=== PATIENT | female | born 1995 | race Hispanic/Latino ===

== ENCOUNTER 2024-12-21 09:10 | Emergency (ER) | payer SELFPAY ==
[~2024-12-21] VITALS: Ht 149.9 cm; Wt 70.8 kg
[~2024-12-21 09:10] MED LIST: PREN-154 PO
--- NOTE | 2024-12-21 10:00 | ERN ---
ED Note History of Present Illness Stated Complaint: FLU LIKE SYMPTOMS Chief Complaint: Flu Symptoms Time Seen by MD: 09:14 Dictation: 29-year-old female presents to the ED for evaluation of flu-like symptoms onset two days ago. Patient reports fever, chills, cough, chest pain and back pain, but denies any other associated symptoms at this time. Patient mentioned she was diagnosed with a UTI and prescribed Macrobid at the urgent care on Friday. Patient denies any sick contacts at home. Allergies: Coded Allergies: No Known Allergies (Unverified Allergy, Unknown, 02/25/24) Home Meds Active Scripts Ondansetron (Ondansetron Odt) 4 Mg Tab.rapdis, 1 TAB PO Q6HPRN PRN for nausea/vomiting for 4 Days, #16 TAB 0 Refills Prov:SONIA VALDEZ MD 12/21/24 Oseltamivir Phosphate (Tamiflu) 75 Mg Cap, 75 MG PO BID for 5 Days, #10 CAP Prov:SONIA VALDEZ MD 12/21/24 Reported Medications Vits #93/Iron Fum/FA ( Formula Tablet) 9 Mg Iron-267 Mcg Tablet, 1 EACH PO DAILYBKFST, TAB 02/26/24 Past Medical History Past Medical History: No Pertinent History Surgical History: None LMP: Nov 27, 2024 : 1 Para: 1 Aborts: 0 Review of System Dictation Constitutional: Positive for fever, chills Eyes: Negative for injury, pain,redness, and discharge ENT: Negative for injury,pain or swelling Cardiovascular: Negative for chest pain, palpitations, and edema Respiratory: Positive for cough Negative for shortness of breath, and wheezing, Abdomen/GI: Negative for abdominal pain, nausea, vomiting, diarrhea, and constipation Back: Positive for back pain : Negative for injury, bleeding and discharge MS/Extremity: Negative for injury and deformity Skin: Negative for rash, and discoloration Neuro: Negative for headache, weakness, numbness, tingling, and seizure Psych: Negative for suicide ideation, homicidal ideation, and hallucinations Initial Vital Sign VS Vital Signs Date Time Temp Pulse Resp B/P (MAP) Pulse Ox O2 Delivery O2 Flow Rate FiO2 12/21/24 09:10 100.0 115 20 105/76 98 Room Air 0 12/21/24 11:47 21 Physical Exam Dictation General: awake, alert, NAD Head/Face: Normocephalic, atraumatic Eyes: PERRL, EOMI, vision at baseline ENT: oral cavity clear, TMs clear, nasal congestion Neck: Trachea midline, supple, no nuchal rigidity Cardiovascular: RRR, normal S1/S2, No MRGs, no JVD Respiratory: CTAB, no respiratory distress, No rales or wheezes Abdomen: Soft, non-tender, non-distended, normal bowel sounds, no guarding or rebound. Skin: Warm, dry, normal turgor, no rash MS/Extremity: Pulses equal, no cyanosis, neurovascular intact, FROM Neuro: COAx4, GCS 15, strength 5/5, CN 2-12 intact, normal cerebellar exam, normal gait, Psych: Normal behavior, mood, and affect normal Results (Laboratory/Radiology) Laboratory/Radiology Laboratory Tests Test 12/21/24 09:13 12/21/24 11:51 Influenza Type A Antigen Positive For Type A Influenza Type B Antigen Negative For Type B SARS-CoV-2 Antigen (Rapid) PRESUMPTIVE NEGATIVE Group A Streptococcus Rapid negative (NEGATIVE) Urine Color YELLOW (YELLOW) Urine Appearance CLOUDY (CLEAR) H Urine pH 5.5 (5.0-8.0) Urine Specific [place] 1.015 (1.001-1.031) Urine Protein NEGATIVE mg/dL (NEGATIVE) Urine Glucose (UA) NEGATIVE mg/dL (NEGATIVE) Urine Ketones 20 mg/dL (NEGATIVE) H Urine Occult Blood NEGATIVE (NEGATIVE) Urine Nitrate NEGATIVE (NEGATIVE) Urine Bilirubin NEGATIVE mg/dL (NEGATIVE) Urine Urobilinogen 0.2 mg/dL (0.2-1.0) Urine Leukocyte Esterase 25 Gustavo/uL (NEGATIVE) H Urine RBC 2-5 /HPF (0-1) H Urine WBC 2-5 /HPF (0-1) H Urine Squamous Epithelial Cells MOD /HPF (0-2) Urine Bacteria RARE /HPF (None Seen) Labs Reviewed?: Yes ED Course ED Course Orders Procedure Category Date Status Time Influenza Type A & B, LAB 12/21/24 Complete Rapid 09:10 Covid19 (Sars Antigen LAB 12/21/24 Complete Rapid) 09:10 Rapid (Group A Strep) LAB 12/21/24 Complete 09:10 Chest 2vws RAD 12/21/24 Resulted 09:10 Urinalysis Profile LAB 12/21/24 Complete 09:59 Dexamethasone 4mg/Ml PHA 12/21/24 Complete 1ml Vial (Dexametha 10:00 Current Medications Medications (Trade) Dose Ordered Sig/Bob Route PRN Reason Start Time Stop Time Status Last Admin Dose Admin Dexamethasone Sodium Phosphate (dexaMETHasone 4MG/ML 1ML VIAL) 10 mg ONCE ONCE IM 12/21/24 10:00 12/21/24 10:03 DC 12/21/24 11:39 Vital Signs Date Time Temp Pulse Resp B/P (MAP) Pulse Ox O2 Delivery O2 Flow Rate FiO2 12/21/24 11:47 98.8 88 20 131/64 100 Room Air* 0 21 12/21/24 09:10 100.0 115 20 105/76 98 Room Air 0 Medical Decision Making MDM MDM: Differential diagnosis: Viral syndrome, influenza, URI Risk of complication and/or morbidity or mortality of patient management: None Medications-Per medication reconciliation Need for hospitalization: Patient does not meet criteria for hospitalization. Need for emergency major/minor surgery: No There are no social concerns with this patient. Prescription drug management Prescriptions will include symptomatic care I independently interpreted the test that were performed, results were reviewed by me and considered findings on radiology if ordered. DX & DISP Disposition: Discharge Departure Impression: Primary Impression: Influenza A Additional Impression: Acute URI Condition: Stable Scripts Ondansetron (Ondansetron Odt) 4 Mg Tab.rapdis 1 TAB PO Q6HPRN PRN for nausea/vomiting for 4 Days, #16 TAB 0 Refills Prov: SONIA VALDEZ MD 12/21/24 Oseltamivir Phosphate (Tamiflu) 75 Mg Cap 75 MG PO BID for 5 Days, #10 CAP Prov: SONIA VALDEZ MD 12/21/24 Referrals: SELF,REFERRAL (PCP) SONIA VALDEZ MD Dec 21, 2024 10:00
--- NOTE | 2024-12-21 10:14 | HMCIMG ---
CHEST 2VWS REASON: SOB COMPARISON: None FINDINGS: Two views of the chest were obtained. Lungs are clear. Heart size is normal. There is no pulmonary vascular congestion. Mediastinum and bony thorax appear unremarkable. IMPRESSION: Normal two view chest x-ray.
[2024-12-21 11:10] LABS: RAPID GROUP A STREP negative (NEGATIVE)
[2024-12-21 11:22] LABS: COVID19 (SARS ANTIGEN RAPID) PRESUMPTIVE NEGATIVE (NEGATIVE); INFLUENZA TYPE B Negative For Type B (NEGATIVE)
[2024-12-21 11:25] LABS: INFLUENZA TYPE A Positive For Type A (NEGATIVE)
[2024-12-21] MEDS ORDERED: ONDA-243 PO (11:36)
[2024-12-21] MEDS ORDERED: OSEL75 PO (11:36)
[2024-12-21] MEDS: dexaMETHasone SOD PHOSPHATE 4 MG/ML 1ML VIAL IM ONE (11:39)
[2024-12-21 11:47] VITALS: BP 131/64; PULSE 88; RESP 20; TEMP 98.7; O2SAT 100
[2024-12-21 12:59] LABS: APPEARANCE,URINE CLOUDY (CLEAR); BILIRUBIN,URINE NEGATIVE (NEGATIVE); COLOR,URINE YELLOW (YELLOW); GLUCOSE, URINE (UA) NEGATIVE (NEGATIVE); KETONES,URINE 20 mg/dL (NEGATIVE); LEUKOCYTE ESTERASE ,URINE 25 Leu/uL (NEGATIVE); NITRATE,URINE NEGATIVE (NEGATIVE); OCCULT BLOOD,URINE NEGATIVE (NEGATIVE); PH,URINE 5.5 (5.0-8.0); PROTEIN,URINE NEGATIVE (NEGATIVE); UROBILINOGEN,URINE 0.2 mg/dL (0.2-1.0)
[2024-12-21 13:03] LABS: ADD UA MICROSCOPIC YES
[2024-12-21 13:06] LABS: BACTERIA,URINE RARE /HPF (None Seen); MUCUS,URINE RARE LPF (None Seen); SQUAMOUS EPITHELIAL CELL,UR MOD /HPF (0-2)
== END 2024-12-21 12:02 | disposition home or self-care (01) ==
LOC: EDH 09:10
DX: J10.1 Influenza due to other identified influenza virus with other respiratory manifestations (principal); Z20.822 Contact with and (suspected) exposure to COVID-19; Z79.899 Other long term (current) drug therapy
CPT/HCPCS: 99284; 71046; 87426; 87880; 87804 ×2; 81001; 96372; J1100